=== PATIENT | female | born 1940 | race Caucasian/White ===

== ENCOUNTER 2022-03-16 09:48 | Day surgery (SDC) | payer BC, MEDICARE ==
[2022-03-09 12:12] LABS: BASOPHILS % (AUTO) 0.6 % (0-1); EOSINOPHILS # (AUTO) 0.1 X10'3 (0-0.9); EOSINOPHILS % (AUTO) 3.2 % (0-6); LYMPHOCYTES # (AUTO) 1.2 X10'3 (1.1-4.8); MEAN CORPUSCULAR HEMOGLOBIN 30.7 PG (27.0-31.0); MEAN CORPUSCULAR HGB CONC 32.9 g/dL (33.0-36.5); MEAN CORPUSCULAR VOLUME 93.5 FL (78-98); MEAN PLATELET VOLUME 8.2 FL (7.4-10.4); MONOCYTES # (AUTO) 0.5 X10'3 (0-0.9); MONOCYTES % (AUTO) 10.7 % (2-12); NEUTROPHILS # (AUTO) 2.6 X10'3 (1.8-7.7); NEUTROPHILS % (AUTO) 58.5 % (42-75); PRE OP HEMATOCRIT 41.6 % (35.0-45.0); PRE OP HEMOGLOBIN 13.7 g/dL (12.0-16.0); PRE OP PLATELET COUNT 211 X10'3 (140-440); RED BLOOD COUNT 4.45 X10'6 (4.20-5.60); RED CELL DISTRIBUTION WIDTH 15.1 % (11.5-14.5)
[2022-03-09 12:25] LABS: PRE OP INR 1.1 INR; PRE OP PROTIME 11.4 SECONDS (9.0-12.0)
[2022-03-09 12:36] LABS: ALBUMIN 3.9 G/DL (3.4-5.0); ALBUMIN/GLOBULIN RATIO 1.2 (1.1-1.5); ALKALINE PHOSPHATASE 77 IU/L (46-116); BLOOD UREA NITROGEN 30 MG/DL (7-18); BUN/CREATININE RATIO 15.8 (6.6-38.0); CALCIUM 9.4 MG/DL (8.5-10.1); CHLORIDE 105 MMOL/L (99-107); PRE OP ALT 33 U/L (30-65); PRE OP ANION GAP 11 (8-16); PRE OP AST 25 U/L (10-37); PRE OP BILIRUB, TOTAL 0.7 MG/DL (0.0-1.0); PRE OP GLUCOSE 106 MG/DL (70-104); PRE OP SODIUM 144 MMOL/L (135-145); TOTAL CARBON DIOXIDE 27.7 MMOL/L (24-32); TOTAL PROTEIN 7.2 G/DL (6.4-8.2); eGFR 25 ML/MIN
[~2022-03-16] VITALS: Ht 165.1 cm; Wt 70.3 kg
[2022-03-16] VITALS (34 sets, daily range): BP systolic 113–168; BP diastolic 56–95
[~2022-03-16 09:48] MED LIST: APIX2.5T PO; ARIP5TAB60 PO; ATOR40TA72 PO; CALC0.253 PO; DILT-36 PO; EZET10TA48 PO; LIDOcaine 1% W/epiNEPHrine 1:100,000 20ml vial ONE; LISI1TAB51 PO; VORT20TA PO; cocaine 4% topical solution 4ml bottle ONE; diazepam 5mg tablet PO ONE; famotidine 20mg tablet PO ONE; mupirocin 2% ointment 22GM ONE; oxymetazoline 15 ML nasal spray NS ONE; ringers solution, lacted 1,000 ML IV SCH
[2022-03-16] MEDS: oxymetazoline 15 ML nasal spray NS PRN ×3 (11:53→15:35)
[2022-03-16] MEDS ORDERED: sevoflurane 250ml liquid IH ONE (12:18)
[2022-03-16] MEDS ORDERED: midazolam 1 mg/ML 2ml injection ONE (12:30)
[2022-03-16] MEDS ORDERED: fentaNYL/PF 50MCG/1 ML 2ML syringe ONE (12:40)
[2022-03-16] MEDS ORDERED: LIDOcaine 1%/PF 5ML 10 MG/ML VIAL ONE (13:42)
[2022-03-16] MEDS ORDERED: ondansetron/PF 4mg/2ml inj ONE (13:42)
[2022-03-16] MEDS ORDERED: propofol inj 20 ML IV ONE (13:42)
[2022-03-16] MEDS ORDERED: dexamethasone sod phosphate 4mg/ml inj. ONE (13:42)
--- NOTE | 2022-03-16 13:52 | NUR ---
Received from OR via chin , accompanied by Anesthesiologist and report given by Gerardo Anesthesiolgist. Patient waking up, denies pain, VSS, 20g piv to right wrist, dressing to bilateral nasal packing CDI. Will keep monitoring. Addendum: 03/16/22 at 1406 by Mike Lubin RN Amended: Links added.
[2022-03-16] MEDS ORDERED: ringers solution, lacted 1,000 ML IV SCH (13:55)
[2022-03-16] MEDS ORDERED: morphine 4 MG/ML inj SYRINge IV PRN (13:55)
[2022-03-16] MEDS ORDERED: ondansetron/PF 4mg/2ml inj IV PRN (13:55)
[2022-03-16] MEDS ORDERED: morphine 2 MG/ML inj. syringe IV PRN (13:55)
[2022-03-16] MEDS ORDERED: proCHLORperazine 10 MG/2 ml inj IV PRN (13:55)
[2022-03-16] MEDS ORDERED: meperidine/PF 25mg/ml syringe IV PRN (13:55)
[2022-03-16] MEDS ORDERED: acetaminophen 1,000mg/100ml IV 100 ML IV PRN (13:55)
[2022-03-16] MEDS ORDERED: HYDROmorphone/PF 0.2 MG/ML SYRINGE IV PRN ×2 (13:55)
[2022-03-16] MEDS: labetalol 20mg/4ml (5mg/ml) syringe IV PRN ×3 (14:15→14:43)
[2022-03-16] MEDS ORDERED: salt irrigation nasal spray 45 ML SPRAY NS PRN (14:20)
[2022-03-16] MEDS: hydrALAZINE 20mg/ml inj. IV PRN ×3 (14:58→15:47)
--- NOTE | 2022-03-16 16:25 | NUR ---
UNABLE TO SCAN MUPIROCIN. ADMINISTERED ON BOTH NOSTRILS PER DR. CANO'S DISCHARGE INSTRUCTIONS. Addendum: 03/16/22 at 1728 by Mike Lubin RN Amended: Links added.
[2022-03-16] MEDS ORDERED: benzocaine/menthol oral lozeng 1 EACH BOX MM PRN (17:10)
--- NOTE | 2022-03-16 17:30 | NUR ---
ALL DISCHARGE CRITERIA HAS BEEN MET. VSS, PAIN AT A TOLERABLE LEVEL, ABLE TO SAFELY AMBULATE AND TRANSFER SELF. IV TAKEN OUT WITHOUT ANY COMPLICATIONS. ALL DISCHARGE INSTRUCTIONS COVERED WITH PATIENT AND ALL QUESTIONS ANSWERED. PATIENT TAKEN OUT VIA WHEELCHAIR TO PERSONAL VEHICLE WHERE FAMILY/FRIEND DROVE PATIENT HOME. Addendum: 03/16/22 at 1744 by Mike Lubin RN Amended: Links added.
== END 2022-03-16 17:32 | disposition home or self-care (01) ==
LOC: PAS 09:48
PROVIDERS: ATTEND Otolaryngology
DX: J34.2 Deviated nasal septum (principal); J34.3 Hypertrophy of nasal turbinates; J32.8 Other chronic sinusitis; J34.89 Other specified disorders of nose and nasal sinuses; E11.9 Type 2 diabetes mellitus without complications; I10 Essential (primary) hypertension; I48.91 Unspecified atrial fibrillation; F32.A Depression, unspecified; F41.9 Anxiety disorder, unspecified; Z79.01 Long term (current) use of anticoagulants; Z79.899 Other long term (current) drug therapy; Z20.822 Contact with and (suspected) exposure to COVID-19; Z87.891 Personal history of nicotine dependence; Z72.89 Other problems related to lifestyle; Z96.653 Presence of artificial knee joint, bilateral; Z88.8 Allergy status to other drugs, medicaments and biological substances
CPT/HCPCS: 30140; 30520; 31240; 31254; 31267; 36415; 61782; 80053; 82948; 85025; 85576; 85610; 85730; 93005; A6402; C9250; J0360; J1100; J2250; J2405; J2704; J3010; J3490; J7030; J7040; J7120; U0003; U0005; Z7506; Z7508; Z7512; 88300; 88304; 88311; A4618; A6449; A7000